=== PATIENT | male | born 1995 | race Caucasian/White ===

== ENCOUNTER → 2021-06-26 | Outpatient (CLI) | payer OTHER ==
--- NOTE | 2021-06-26 10:23 | XR ---
EXAMINATION TYPE: XR lumbar spine 2 or 3V DATE OF EXAM: 06/26/2021 COMPARISON: None HISTORY: Low back pain TECHNIQUE: 3 view lumbar spine FINDINGS: There 5 lumbar-type vertebral bodies. Pedicles are intact. Scoliosis present with convexity to right. This could be related to muscle spasm. Disc space narrowing is present L1-L2 3. Milder dis c space narrowing is present L3-4. Vertebral body heights are preserved. IMPRESSION: 1. Mild degenerative disc change upper lumbar spine
== END | disposition home or self-care (01) ==
LOC: RADXRMAIN 09:27
PROVIDERS: ATTEND Emergency Medicine
DX: S39.012D Strain of muscle, fascia and tendon of lower back, subsequent encounter (principal); M51.36 Other intervertebral disc degeneration, lumbar region; X58.XXXD Exposure to other specified factors, subsequent encounter
CPT/HCPCS: 72100